=== PATIENT | male | born 1975 | race Two or more races ===

== ENCOUNTER 2021-08-12 12:24 | Emergency (ER) | payer OTHER ==
[~2021-08-12] VITALS: Ht 167.6 cm; Wt 82.6 kg
[2021-08-12 15:38] VITALS: BP 154/96
[2021-08-12] MEDS ORDERED: methylPREDNISolone SOD SUCC 125 MG/2 ML VL IM ONE (16:15)
[2021-08-12] MEDS ORDERED: KETOROLAC TROMETH 60MG/2ML VIAL IM ONE (16:15)
[2021-08-12] MEDS ORDERED: cefTRIAXone SOD 1,000 MG VL IM ONE (16:15)
== END 2021-08-12 17:20 | disposition home or self-care (01) ==
LOC: ER 12:24
DX: L03.115 Cellulitis of right lower limb (principal)
CPT/HCPCS: 36415; 84550; 96372; 99284; J0696; J1885; J2930

== ENCOUNTER 2023-04-20 09:27 | Emergency (ER) | payer OTHER ==
[~2023-04-20] VITALS: Ht 167.6 cm; Wt 84.5 kg
[2023-04-20] MEDS ORDERED: methylPREDNISolone ACETATE 80 MG/ML VL IM ONE (10:30)
[2023-04-20] MEDS ORDERED: FAMOTIDINE 20 MG TAB PO ONE (10:30)
[2023-04-20] MEDS ORDERED: cefTRIAXone SOD 1,000 MG VL IM ONE (10:30)
[2023-04-20] MEDS ORDERED: HYDROcodone-ACET 5/325MG TAB PO ONE (10:30)
[2023-04-20 11:13] VITALS: BP 142/100
== END 2023-04-20 11:47 | disposition home or self-care (01) ==
LOC: ER 09:27
DX: M10.9 Gout, unspecified (principal); M79.674 Pain in right toe(s)
CPT/HCPCS: 96372; 99284; J0696; J1040